=== PATIENT | female | born 1995 | race Caucasian/White ===

== ENCOUNTER 2017-04-26 21:55 | Emergency (ER) | payer OTHER ==
[~2017-04-26] VITALS: Ht 160 cm; Wt 59.1 kg
[~2017-04-26 21:55] MED LIST: MEDR150I IM
[2017-04-26 22:03] VITALS: TEMP 37.1; Ht 160 cm; Wt 59.1 kg
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
[2017-04-26 23:03] VITALS: BP 118/72; PULSE 75; O2SAT 98
== END 2017-04-26 23:03 | disposition home or self-care (01) ==
LOC: C.EDB 21:55 → C.EDC 23:03
DX: M25.532 Pain in left wrist (principal); Y04.8XXA Assault by other bodily force, initial encounter; Y92.239 Unspecified place in hospital as the place of occurrence of the external cause; Y99.0 Civilian activity done for income or pay